=== PATIENT | female | born 1995 | race Hispanic/Latino ===

== ENCOUNTER 2019-04-27 16:13 | Emergency (ER) | payer OTHER ==
[2019-04-27 16:38] LABS: #Lymphocytes 1.1 thou/uL (1.20-3.40); #Monocytes 0.4 thou/uL (0.11-0.59); #Neutrophils 2.8 thou/uL (1.40-6.50); %Basophils 0.6 % (0.0-1.0); %Eosinophils 1.1 % (0.0-10.0); %Lymphocytes 25.3 % (21.0-51.0); %Monocytes 8.1 % (0.0-10.0); %Neutrophils 64.8 % (42.0-75.0); Hemoglobin 13.5 g/dL (12.0-16.0); Mean Corpuscular HGB CONC 34.5 g/dL (32.0-36.0); Mean Corpuscular Hemoglobin 28.2 pg (27.0-31.0); Mean Corpuscular Volume 81.7 fL (78.0-98.0); Mean Platelet Volume 8.4 fL (7.4-10.4); Platelet Count 223 thou/uL (130-400); RBC Distribution Width 13.5 % (11.5-14.5); Red Blood Cell (RBC) Count 4.79 mill/uL (4.20-5.40); White Blood Cell (WBC) Count 4.4 thou/uL (4.8-10.8)
[2019-04-27 16:41] LABS: Pregnancy Test - Urine (BHCG) POSITIVE (Negative); Pregu Control Background? CLEAR/WHITE (CLR/WHITE); Pregu Control Bar Appear? YES (CONTROL BAR); Specific Gravity 1.029 (1.002-1.036)
[2019-04-27 16:43] LABS: Bilirubin Negative (Negative); Blood, Urine Negative (Negative); Clarity Turbid (Clear); Glucose, Urine (Dipstick) Normal (Negative); Leukocyte 500 Leu/uL (Negative); Nitrite Negative (Negative); Protein, Urine (Dipstick) 70 mg/dL (Neg-Trace); WBC/HPF Greater than 50 HPF (0-3)
[2019-04-27 16:49] LABS: Bacteria/HPF 2+ HPF (None Seen)
[2019-04-27 16:57] LABS: ALT (SGPT) 75 U/L (8-55); AST (SGOT) 103 U/L (5-34); Alkaline Phosphatase 76 U/L (40-150); Anion Gap 15 mmol/L (10-20); BUN (Urea Nitrogen) 5 mg/dL (7.0-18.7); Bilirubin, Total 0.5 mg/dL (0.2-1.2); Calc. Creatinine Clearance 0 mL/min (70-130); Calcium 9.7 mg/dL (7.8-10.44); Carbon Dioxide 22 mmol/L (22-29); Chloride 102 mmol/L (98-107); Estimated GFR-MDRD Greater than 90; Globulin 3.9 g/dL (2.4-3.5); Glucose 111 mg/dL (70-105); Lipase 13 U/L (8-78); Potassium 3.2 mmol/L (3.5-5.1); Protein, Total 7.9 g/dL (6.0-8.3); Sodium 136 mmol/L (136-145)
--- NOTE | 2019-04-27 21:47 | ULT ---
Sonogram right upper quadrant HISTORY: Right upper quadrant pain. FINDINGS: Multiple shadowing stones are present within the gallbladder lumen. Gallbladder measures up to 9 cm. Patient was reportedly tender over the gallbladder fossa at the time of the exam. Gallbladder wall upper limits of normal thickness at 0.4 cm. Small amount of adjacent fluid. Common d uct is 0.5 cm Liver unremarkable without focal mass or intrahepatic biliary dilatation. IMPRESSION: Cholelithiasis with multiple sonographic findings of acute cholecystitis, including a pos itive sonographic Callahan sign.
--- NOTE | 2019-04-27 22:04 | ULT ---
Obstetric sonogram HISTORY: First trimester gestation. Pelvic pain. FINDINGS: Single intrauterine gestational sac. Measurements correlate with 11 weeks 6 days gestationa l age giving an estimated date delivery of 11/10/2019. Heart motion at 169 bpm. Amniotic fluid within normal limits. Ovaries are unremarkable. IMPRESSION: Single viable gestation. Estimated gestational age 11 weeks 6 days.
[2019-04-27] MEDS ORDERED: cefTRIAXone\\ROCEPHIN 1 GM VIAL ONE (22:25)
== END 2019-04-27 23:59 | disposition home or self-care (01) ==
LOC: ERS 16:13
DX: O99.612 Diseases of the digestive system complicating pregnancy, second trimester (principal); O23.42 Unspecified infection of urinary tract in pregnancy, second trimester; K80.10 Calculus of gallbladder with chronic cholecystitis without obstruction; O24.112 Pre-existing type 2 diabetes mellitus, in pregnancy, second trimester; E11.9 Type 2 diabetes mellitus without complications; Z3A.14 14 weeks gestation of pregnancy
CPT/HCPCS: 36415; 76705; 76856; 80053; 81003; 81015; 81025; 83690; 85025; 93976; 96365; J0696